=== PATIENT | female | born 1955 | race Caucasian/White ===

== ENCOUNTER 2017-07-10 09:42 | Day surgery (SDC) | payer OTHER ==
[~2017-07-10] VITALS: Ht 170.2 cm; Wt 93.0 kg
[~2017-07-10 09:42] MED LIST: ASPIRIN81 M2 PO; ATORVASTATIN CA20 MG PO; FEMARA2.5 MG PO; METOPROLOL TART25 MG PO; MULTIVITAMIN1 EAC2 PO; NITROSTAT0.4 MG SL; VITAMIN D31000 UNIT PO; VITAMIN E400 UNIT PO; [UNRECOGNIZED DRUG - OTHER] PO
== END 2017-07-10 16:30 | disposition home or self-care (01) ==
LOC: CATH 09:42
DX: I25.10 Atherosclerotic heart disease of native coronary artery without angina pectoris (principal); I25.84 Coronary atherosclerosis due to calcified coronary lesion; R06.02 Shortness of breath; E78.5 Hyperlipidemia, unspecified; E66.01 Morbid (severe) obesity due to excess calories; Z85.3 Personal history of malignant neoplasm of breast; Z77.22 Contact with and (suspected) exposure to environmental tobacco smoke (acute) (chronic)
CPT/HCPCS: C1769; C1887; J1644; J2250; J3010